=== PATIENT | male | born 1980 | race Two or more races ===

== ENCOUNTER 2021-09-14 15:14 | Emergency (ER) | payer MEDICAID, SELFPAY ==
--- NOTE | ~2021-09-14 | XR_ITS ---
EXAMINATION: XR WRIST, LEFT CLINICAL INFORMATION: Pain COMPARISON: Hand radiographs 09/14/2021 TECHNIQUE: PA, lateral, and oblique views of the left wrist. FINDINGS: No acute fracture or dislocation. Joint spaces are maintained. Moderate tissue swelling is noted along the dorsum of the wrist and forearm. XR/XR wrist LT 2V IMPRESSION: Moderate soft tissue swelling along the dorsum of the hand and forearm, without definite underlying acute osseous injury.
--- NOTE | ~2021-09-14 | XR_ITS ---
EXAMINATION: XR HAND, LEFT CLINICAL INFORMATION: Swollen COMPARISON: None TECHNIQUE: PA, lateral, and oblique views of the left hand. FINDINGS: There is no visible acute fracture, dislocation or subluxation seen. There is mild soft tissue swelling. The IP, MCP joints and inter carpal joints are normal. There is moderate dorsal hand soft tissue swelling likely cellulitis. XR/XR hand LT 2V IMPRESSION: Moderate dorsal hand cellulitis. No visible acute fracture or bony abnormality seen.
[2021-09-14 15:18] VITALS: BP 124/78; PULSE 67; RESP 18; TEMP 36.8; O2SAT 96; BMI 31.9
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
[2021-09-14 18:52] LABS: Basophils Percent Auto 0.4 % (0-2); Imm Gran Abs Auto 0.02 X10*3/uL (0.00-0.03); Imm Gran Pct Auto 0.3 % (0.0-0.4); MANUAL DIFF FLAG SCAN; PLT CLUMP 1; SCAN SMEAR FLAG 1
[2021-09-14 18:53] LABS: Eosinophils Absolute Auto 0.4 X10*3/uL (0.0-0.4); Eosinophils Percent Auto 4.8 % (0-4); Hematocrit 35.6 % (42.0-52.0); Hemoglobin 11.4 g/dl (14.0-18.0); Lymphocytes Absolute Auto 2.4 X10*3/uL (1.2-4.9); Lymphocytes Percent Auto 33.7 % (20-40); Mean Corpuscular Hemoglobin 29.8 pg (27.0-33.0); Mean Corpuscular Volume 93.2 fL (80.0-98.0); Mean Platelet Volume 10.4 fL (9.4-12.4); Monocytes Absolute Auto 0.7 X10*3/uL (0.1-1.2); Neutrophils Absolute Auto 3.7 x10*3/uL (2.0-8.3); Neutrophils Percent Auto 51.8 % (45-73); Red Blood Count 3.82 X10*6/uL (4.60-5.80); Red Cell Distribution Width 13.6 % (11.0-16.0)
[2021-09-14 19:01] LABS: Lactic Acid 1.2 mmol/L (0.5-2.0)
[2021-09-14 19:05] LABS: Anion Gap 16 (12-20); Blood Urea Nitrogen 17 mg/dL (9-16); C Reactive Protein 3.68 mg/dL (< or = 0.50); Calcium 9.1 mg/dL (8.4-10.2); Carbon Dioxide 22 mmol/L (22-29); Chloride 104 mmol/L (96-108); Creatinine Clr Calc Pharmacy 91.1; Estimated Glomerular Filt Rate > 60; Glucose Random 90 mg/dL (60-115); Potassium 4.5 mmol/L (3.3-5.1); Sodium 137 mmol/L (135-145)
[2021-09-14 19:09] LABS: Platelet Count 207 X10*3/uL (160-400); White Blood Count 7.2 X10*3/uL (4.8-10.8)
[2021-09-14 19:10] LABS: SLIDE REVIEW VERIFIED
[2021-09-14] MEDS: Piperacillin Sodium/Tazobactam 3.375 GM in 0.9 % Sodium Chloride 50 ML IV (19:22)
[2021-09-14 19:36] LABS: Erythrocyte Sedimentation Rate 28 MM/HR (0-15)
[2021-09-14 22:59] VITALS: BP 99/63; PULSE 59; RESP 16; TEMP 37.1; O2SAT 98
[2021-09-14 23:41] VITALS: BP 112/74; PULSE 61; RESP 20; O2SAT 94
== END 2021-09-15 01:17 | disposition home or self-care (01) ==
PROVIDERS: Nurse Practitioner Family; Emergency Provider Emergency Medicine
DX: L03.114 Cellulitis of left upper limb (principal); M79.642 Pain in left hand; Z79.899 Other long term (current) drug therapy
CPT/HCPCS: 36415; 73100; 73120; 80048; 83605; 85025; 85652; 86140; 87040; 96365; 96366; 96367; 99283; 99284; J2543; J3370

== ENCOUNTER 2022-06-30 18:17 | Emergency (ER) | payer MEDICAID, SELFPAY ==
[2022-06-30 18:41] VITALS: BP 170/80; PULSE 63; RESP 18; TEMP 36.1; O2SAT 95; BMI 30.4
--- NOTE | 2022-06-30 18:42 | ED_ITS ---
HPI - Dental/Oral General Chief complaint: Dental/Oral Stated complaint: toothache Time Seen by Provider: 06/30/22 18:45 Source: patient Mode of arrival: ambulatory History of Present Illness HPI Narrative: 42-year-old male with no significant past medical history presenting to the ED complaining of left lower dental pain x 1 week. Admits has been taking Tylenol and Motrin without relief. Reports pain is radiating to left cheek/neck. Denies fever, chills, drainage from area, recent dental procedures MD Complaint: tooth pain Related Data Previous Rx's Medication Instructions Recorded cephalexin 500 mg capsule 500 mg PO BID #14 caps 09/14/21 doxycycline monohydrate 100 mg 100 mg PO BID 10 days #20 caps 09/14/21 capsule amoxicillin 875 mg-potassium 1 tab PO BID 7 days #14 tabs 06/30/22 clavulanate 125 mg tablet hydrocodone 5 mg-acetaminophen 325 1 tab PO Q8H PRN pain, severe 3 06/30/22 mg tablet days #3 tabs Allergies Allergy/AdvReac Type Severity Reaction Status Date / Time SEAFOOD Allergy Unknown UNKNOWN Uncoded 06/30/22 18:46 Review of Systems Review of Systems: Constitutional: No Fever, No Chills ENT/Mouth: +dental pain, No Ear Pain, No Nasal Congestion, No Sinus Pain, No Hoarseness, No sore throat, No Rhinorrhea, No Swallowing Difficulty Cardiovascular: No Chest Pain, No SOB Respiratory: No Cough, No Sputum, No Wheezing Gastrointestinal: No Nausea, No Vomiting, No Diarrhea, No Constipation, No Abdominal pain Musculoskeletal: No joint pain, No Myalgias, No Joint Swelling Skin: No Skin Lesions, No rash Neuro: No Weakness, No Numbness, No Paresthesias Yes all other systems are reviewed and are negative Constitutional: Constitutional: Reports as per [facility] Past Medical History Attestation statement: The following information was validated with the patient. Physical Exam Vital Signs: Vital Signs: Last Vital Signs Temp 97.0 F 06/30/22 18:41 Pulse 63 06/30/22 18:41 Resp 18 06/30/22 18:41 BP 170/80 H 06/30/22 18:41 Pulse Ox 95 06/30/22 18:41 O2 Del Method Room Air 06/30/22 18:41 BMI result Body Mass Index 30.4 Const: General: cooperative, healthy appearing and no acute distress Orientation/consciousness: patient oriented x3 Limitations: no limitations HEENT: Other: Poor dentition. Left lower bicuspid with gingival irritation and tenderness. No fluctuance/induration. No active drainage. Head: Yes normal to inspection and Yes atraumatic Ears: hearing grossly normal bilaterally General nose exam: Normal external nose present Face and sinus: Yes normal facial exam and Yes face symmetric Throat: Yes posterior oropharynx normal, Yes tonsils normal, Yes uvula midline, No peritonsillar mass, No uvula laterally displaced and No uvular edema Eyes: General: appearance normal, both eyes and all related structures EOM: EOMs intact bilaterally Neck: Neck: Yes normal visual inspection and Yes no meningeal signs Resp: Effort & Inspection: normal respiratory effort and no respiratory distress Cardio: Rate: regular rate Skin: Rashes: no rashes Wounds: no wounds Neuro: General: patient oriented x3, tone normal and no meningeal signs Gait exam (Neuro): Normal gait present Extrem: General: Yes normal to inspection Medical Decision Making Medical Decision Making MDM Narrative: 42-year-old male with no significant past medical history presenting to the ED complaining of left lower dental pain x 1 week. On exam +left lower bicuspid with gingival tenderness. No fluctuance/induration/cellulitis or abscess. No appreciable facial swelling. Poor dentition. No evidence of AD OPERATIONS INTERN Plan: P.o. antibiotics, dentistry follow-up Please refer to course for remaining clinical decision making, interpretation of labs/imaging results, and discussions with consultants and/or family members. Differential Diagnosis Differential Diagnoses: The differential diagnosis associated with the presentation includes As above Admission/Observation Consideration of admission/observation: Escalation of care including admission/observation considered Lab Data [facility] Lab Attestation statement: I reviewed the patient's lab results. Radiology Impression Discussion of test interpretation with radiology: I have reviewed the radiologist's reading. External Record Review External record reviewed: Inpatient record, Office record, Outpatient record, Prior outpatient labs, Prior outpatient radiology, Primary care record and Outside ED record Discharge Plan Discharge Clinical Impression: Pain, dental Patient Disposition: Home, Self-Care Instructions: Toothache (ED) Additional Instructions: Augmentin is an antibiotic please take as prescribed. Continue taking ibuprofen and Tylenol for pain. [place] is an opiate pain medication, take only when pain is severe for the next [address], drink alcohol, or operate machinery while taking. Be aware [place] has Tylenol mixed in August exceed 4 g in 1 day You need to see a dentist If symptoms persist or worsen return to the ED Prescriptions: New amoxicillin-pot clavulanate 875-125 mg tablet 1 tab PO BID 7 Days Qty: 14 0RF hydrocodone-acetaminophen 5-325 mg tablet 1 tab PO Q8H PRN (Reason: pain, severe) 3 Days Qty: 3 0RF Rx Instructions: Partial Fill upon patient request. No Action cephalexin 500 mg capsule 500 mg PO BID Qty: 14 0RF doxycycline monohydrate 100 mg capsule 100 mg PO BID 10 Days Qty: 20 0RF Referrals: Luis A Campuzano [Dentist] - Mike Pruett DMD [Dentist] - Kurt Jimenez DMD [Dentist] - Rashmi Ashraf DMD [Dentist] - Stand Alone Forms: Work/School Release
== END 2022-06-30 18:53 | disposition home or self-care (01) ==
PROVIDERS: Emergency Provider Student in an Organized Health Care Education/Training Program
DX: K08.89 Other specified disorders of teeth and supporting structures (principal)
CPT/HCPCS: 99282; 99283

== ENCOUNTER 2022-10-20 15:57 | Emergency (ER) | payer OTHER, SELFPAY ==
--- NOTE | ~2022-10-20 | XR_ITS ---
EXAMINATION: RIGHT KNEE, RIGHT TIB-FIB CLINICAL INFORMATION: Pain and swelling. History of remote fracture of tibia. COMPARISON: None available. TECHNIQUE: 4 views right knee, 2 views right tib-fib FINDINGS: Degenerative changes are present in the knee with tricompartmental narrowing most marked medially and in the patellofemoral compartment. A tiny joint effusion is seen. No fractures, dislocations or chondrocalcinosis seen. There is a probable old healed fracture involving the distal tibial diaphysis with cortical thickening and sclerosis. No acute fracture is seen. XR/XR knee RT 4V IMPRESSION: Tricompartmental degenerative changes in the knee with a tiny joint effusion. No acute finding. This critical result was discussed with JAY JAY Ellsworth at 6:30 PM on the evening of the exam and it was ascertained that the content and urgency of the report was understood at the time of direct communication.
--- NOTE | ~2022-10-20 | XR_ITS ---
EXAMINATION: RIGHT KNEE, RIGHT TIB-FIB CLINICAL INFORMATION: Pain and swelling. History of remote fracture of tibia. COMPARISON: None available. TECHNIQUE: 4 views right knee, 2 views right tib-fib FINDINGS: Degenerative changes are present in the knee with tricompartmental narrowing most marked medially and in the patellofemoral compartment. A tiny joint effusion is seen. No fractures, dislocations or chondrocalcinosis seen. There is a probable old healed fracture involving the distal tibial diaphysis with cortical thickening and sclerosis. No acute fracture is seen. XR/XR tibia fibula RT 2V IMPRESSION: Tricompartmental degenerative changes in the knee with a tiny joint effusion. No acute finding. This critical result was discussed with JAY JAY Ellsworth at 6:30 PM on the evening of the exam and it was ascertained that the content and urgency of the report was understood at the time of direct communication.
[2022-10-20 16:29] VITALS: BP 139/87; PULSE 76; RESP 18; TEMP 36.9; O2SAT 97; BMI 30.4
--- NOTE | 2022-10-20 16:29 | ED_ITS ---
HPI - Extremity Injury (Lower) General Chief Complaint: Extremity Injury, Lower Stated Complaint: right knee inj Time Seen by Provider: 10/20/22 18:32 Source: patient Mode of arrival: ambulatory History of Present Illness HPI Narrative: 42-year-old male who has chronic knee pain presents with right knee pain after falling onto the knee over a week ago. He denies any fevers or chills and states he experiences discomfort on flexion of the knee. However, he otherwise denies any numbness or tingling. Related Data Previous Rx's Medication Instructions Recorded cephalexin 500 mg capsule 500 mg PO BID #14 caps 09/14/21 doxycycline monohydrate 100 mg 100 mg PO BID 10 days #20 caps 09/14/21 capsule amoxicillin 875 mg-potassium 1 tab PO BID 7 days #14 tabs 06/30/22 clavulanate 125 mg tablet hydrocodone 5 mg-acetaminophen 325 1 tab PO Q8H PRN pain, severe 3 06/30/22 mg tablet days #3 tabs Allergies Allergy/AdvReac Type Severity Reaction Status Date / Time SEAFOOD Allergy Unknown UNKNOWN Uncoded 06/30/22 18:46 Review of Systems Review of Systems: Pertinent positives and negatives as stated in HPI [facility] Past Medical History Source: nursing notes reviewed Social History Social History Advance Directives: No Advance Directives Information Provided: Yes Physical Exam Vital Signs: Vital Signs: Last Vital Signs Temp 98.4 F 10/20/22 16:29 Pulse 76 10/20/22 16:29 Resp 18 10/20/22 16:29 BP 139/87 10/20/22 16:29 Pulse Ox 97 10/20/22 16:29 O2 Del Method Room Air 10/20/22 16:29 BMI result Body Mass Index 30.4 VITAL SIGNS: Reviewed. GENERAL: Well developed, well nourished, in no acute distress. HEAD: Normocephalic/atraumatic EYES: PERRLA, EOMI LUNGS: Normal breath sounds. No adventitious sounds or accessory muscle use. SpO2<97> CARDIOVASCULAR: Regular rate and rhythm without noted murmurs ABDOMEN: Soft, non-tender, non-distended with bowel sounds. MUSCULOSKELETAL: No tenderness, deformities, or effusions noted on gross inspection. EXTREMITIES: No cyanosis, clubbing or edema. RIGHT KNEE: No obvious deformity, erythema, induration, full range of motion pr esent but discomfort noted, neurovascular intact distally, warm foot, palpable DP/PT with good capillary refill. SKIN: Inspection of the skin reveals no rashes NEUROLOGIC: Alert and oriented x 4. Strength and sensation to light touch were grossly intact x 4. Course Course Course Narrative: RME: 42-year-old male no significant past medical history presenting to the ED complaining of right knee pain radiating down RLE s/p moving furniture a few days ago. reports twisting injury, denies direct injury or fall +right knee with mild swelling, diffusely ttp. NV intact XRs ordered Full HPI, ROS and PE to be performed by primary ED provider. Medical Decision Making Medical Decision Making MDM Narrative: 42-year-old male with acute on chronic osteoarthritis and no evidence of cellulitis or septic arthritis and no suspicion for significant ligamentous injury such as ACL/LCL/MCL. I reviewed the x-ray which was negative for fracture dislocation and otherwise my interpretation of the knee/tibia/fibula x- rays are in agreement with radiology's impression I applied an Ganga wrap to patient's right knee and he will go home with combination analgesics as well as ice use and instructions to follow-up with his primary care provider. Differential Diagnosis Differential Diagnoses: The differential diagnosis associated with the presentation includes Please see the discussion above Admission/Observation Consideration of admission/observation: Escalation of care including admission/observation considered Please see the discussion above Radiology Impression Discussion of test interpretation with radiology: I have reviewed the radiologist's reading. Radiologist Impression: Please see the discussion above Discharge Plan Discharge Clinical Impression: Knee pain, right, Osteoarthritis Patient Disposition: Home, Self-Care Instructions: Osteoarthritis (ED), Knee Pain (ED) Additional Instructions: 1. Tylenol 1000 mg, orally, every 6 hours as needed for pain control. Do not exceed 4000 mg within 24 hours. 2. Ibuprofen 400 mg, orally with milk or food, every 6 hours as needed for pain control. You may take this in combination with the Tylenol for improved symptom relief. 3. I recommend keeping the Ganga bandage in place while ambulating for additional compression and symptom relief. 4. Consider applying ice to unexposed skin for 10-15 minutes, 3 to 4 times a day. 5. He will need to follow-up with your primary care provider to discuss a refe rral for physical therapy. Return to the ER for any worsening symptoms. Prescriptions: No Action cephalexin 500 mg capsule 500 mg PO BID Qty: 14 0RF doxycycline monohydrate 100 mg capsule 100 mg PO BID 10 Days Qty: 20 0RF amoxicillin-pot clavulanate 875-125 mg tablet 1 tab PO BID 7 Days Qty: 14 0RF hydrocodone-acetaminophen 5-325 mg tablet 1 tab PO Q8H PRN (Reason: pain, severe) 3 Days Qty: 3 0RF Rx Instructions: Partial Fill upon patient request. Stand Alone Forms: Work/School Release
== END 2022-10-20 19:08 | disposition home or self-care (01) ==
PROVIDERS: Emergency Provider Student in an Organized Health Care Education/Training Program
DX: M25.561 Pain in right knee (principal); M17.11 Unilateral primary osteoarthritis, right knee
CPT/HCPCS: 73564; 73590; 99282; 99283

== ENCOUNTER 2023-09-14 18:07 | Emergency (ER) | payer SELFPAY ==
--- NOTE | ~2023-09-14 | XR_ITS ---
EXAMINATION: XR KNEE, LEFT CLINICAL INFORMATION: Injury on Thursday, fall COMPARISON: None available. TECHNIQUE: Four views of the left knee. FINDINGS: No acute fracture or dislocation. There is a small joint effusion. There is mild medial compartment joint space narrowing. There is mild osteophyte formation. XR/XR knee LT 3V IMPRESSION: 1. Small joint effusion. 2. Mild degenerative disease of the left knee.
[2023-09-14 18:19] VITALS: BP 124/61; PULSE 83; RESP 20; TEMP 37.2; O2SAT 96; BMI 32.5
[2023-09-14 21:52] VITALS: BP 103/62; PULSE 60; RESP 16; TEMP 36.8; O2SAT 97
--- NOTE | 2023-09-14 23:51 | ED.LOWEXIN ---
HPI - Extremity Injury (Lower) General Chief Complaint: Extremity Injury, Lower Stated Complaint: fall off ladder at work Time Seen by Provider: 09/14/23 23:06 Source: patient Mode of arrival: ambulatory Limitations: no limitations History of Present Illness ED Provider: Dr. Brittney Henderson HPI Narrative: Patient comes to the emergency room complaining of left-sided knee pain. Patient states that the injury happened 5 days ago, but over last couple of days, the pain and swelling got much worse. Patient states that he was at work, patient states that he was stepping down from a ladder, his foot slipped and went in between the ladder and fell. Patient complaining of pain and swelling. Patient denies pain anywhere else. Patient denies hitting his head or losing consciousness. Since then, patient has been walking around limping Related Data Previous Rx's ?Medication ?Instructions ?Recorded cephalexin 500 mg capsule 500 mg PO BID #14 caps 09/14/21 doxycycline monohydrate 100 mg 100 mg PO BID 10 days #20 caps 09/14/21 capsule amoxicillin 875 mg-potassium 1 tab PO BID 7 days #14 tabs 06/30/22 clavulanate 125 mg tablet hydrocodone 5 mg-acetaminophen 325 1 tab PO Q8H PRN pain, severe 3 06/30/22 mg tablet days #3 tabs Allergies Allergy/AdvReac Type Severity Reaction Status Date / Time SEAFOOD Allergy Unknown UNKNOWN Uncoded 09/14/23 18:20 Review of Systems Review of Systems: Constitutional : No Weight loss, No Fever, No Chills, No Night Sweats, No Fatigue, No Malaise ENT/Mouth : No Hearing loss, No Ear Pain, No Nasal Congestion, No Sinus Pain, No Hoarseness, No sore throat, No Rhinorrhea, No Swallowing Difficulty Eyes: No Eye Pain, No Swelling, No Redness, No Foreign Body, No Discharge, No Vision Changes Cardiovascular : No Chest Pain, No SOB, No Dyspnea on Exertion, No Orthopnea, No Edema, No Palpitations Respiratory : No Cough, No Sputum, No Wheezing, No Smoke Exposure, No Dyspnea Gastrointestinal : No Nausea, No Vomiting, No Diarrhea, No Constipation, No abdominal Pain, No Hematochezia, No Melena Genitourinary : no irregular bleeding, No Dysuria, No Urinary Frequency, No Hematuria, No Urinary Incontinence, No Urgency, No Flank Pain, No Urinary Flow Changes, No Hesitancy Musculoskeletal : Complaining of left knee pain and swelling, No Myalgias, No Joint Swelling Skin : No Skin Lesions, No rash Neuro : No Weakness, No Numbness, No Paresthesias, No Loss of Consciousness, No Dizziness, No Headache Psych : No Anxiety/Panic, No Depression, No SI/HI/AH/VH, No Social Issues, Heme/Lymph: No Bruising, No Bleeding,No Lymphadenopathy Endocrine : No Polyuria, No Polydipsia, No Temperature Intolerance [facility] Social History Social History Advance Directives: No Advance Directives Information Provided: No Do you have a plan to hurt others: No Plan Physical Exam Vital Signs: Vital Signs: Last Vital Signs Temp 98.3 F 09/14/23 21:52 Pulse 60 09/14/23 21:52 Resp 16 09/14/23 21:52 BP 103/62 09/14/23 21:52 Pulse Ox 97 09/14/23 21:52 O2 Del Method Room Air 09/14/23 21:52 BMI result Body Mass Index 32.5 Const: Other: Appearance: Alert. Oriented X3. No acute distress. Eyes: Pupils equal, round and reactive to light. ENT: Pharynx normal. Neck: Normal inspection. Neck supple. No lymph nodes noted. No crepitus CVS: Normal heart rate and rhythm. Pulses normal. Normal S1 and S2 Respiratory: No respiratory distress. Breath sounds normal. No Wheezing. No rales Abdomen: Soft and nontender. No rigidity. No distention. Skin: Skin warm and dry. Normal skin color. Normal skin turgor. Extremities: No lower extremity edema. No Lacerations. No Rash. Patient unable to flex and extend the knee due to pain. Patient has [id number] swelling around the knee, more below the patella Neuro: Oriented X 3. No motor deficit. No sensory deficit. Moving all extremities. No slurred speech. CN 2 through 12 grossly intact Psych: calm, cooperative, normal affect Medical Decision Making Medical Decision Making MDM Narrative: My interpretation of x-rays: Normal alignment, no fracture, small effusion below the patella -I discussed with the patient that his x-rays are normal other than the effusion. However, it is likely that patient may have injured the meniscus or the knee ligaments for which he may need an MRI. -patient has been taking ibuprofen home, states he has enough and does not require a prescription. -patient will follow-up with orthopedics Differential Diagnosis Differential Diagnoses: The differential diagnosis associated with the presentation includes (As above) Independent Interpretation I performed an independent interpretation of an: Plain X-Ray Radiology Impression Discussion of test interpretation with radiology: I have reviewed the radiologist's reading. Radiologist Impression: No acute fracture or dislocation. There is a small joint effusion. There is mild medial compartment joint space narrowing. There is mild osteophyte formation. XR/XR knee LT 3V IMPRESSION: 1. Small joint effusion. 2. Mild degenerative disease of the left knee. Discharge Plan Discharge Clinical Impression: Contusion of knee Patient Disposition: Home, Self-Care Instructions: Contusion in Adults (ED) Additional Instructions: It is possible that you may have a meniscal injury or a ligament tear. If you do not improve within the next week, you may need an MRI. Please follow-up with your primary care physician and with work connections tomorrow. If you have any worsening or new symptoms, please return to the emergency room or call 911 Prescriptions: No Action cephalexin 500 mg capsule 500 mg PO BID Qty: 14 0RF doxycycline monohydrate 100 mg capsule 100 mg PO BID 10 Days Qty: 20 0RF amoxicillin-pot clavulanate 875-125 mg tablet 1 tab PO BID 7 Days Qty: 14 0RF hydrocodone-acetaminophen 5-325 mg tablet 1 tab PO Q8H PRN (Reason: pain, severe) 3 Days Qty: 3 0RF Rx Instructions: Partial Fill upon patient request. Referrals: Leland Salazar PA [Physician Intensive Care Unit Nurse] - 09/17/23 Print Language: Telugu
[2023-09-15 00:04] VITALS: BP 117/74; PULSE 72; RESP 16; TEMP 36.2; O2SAT 98
[2023-09-15 01:16] VITALS: BP 117/74; PULSE 72; RESP 16; TEMP 36.2; O2SAT 98
== END 2023-09-15 01:16 | disposition home or self-care (01) ==
PROVIDERS: Emergency Provider Emergency Medicine
DX: S80.02XA Contusion of left knee, initial encounter (principal); M25.562 Pain in left knee; W11.XXXA Fall on and from ladder, initial encounter; Y93.9 Activity, unspecified; Y92.9 Unspecified place or not applicable; Y99.0 Civilian activity done for income or pay; Z79.899 Other long term (current) drug therapy
CPT/HCPCS: 73562; 99283

== ENCOUNTER → 2023-10-07 11:09 | Outpatient (BNVA) | payer OTHER, SELFPAY | PROVIDERS: Visit Provider Physician Assistant ==

== ENCOUNTER 2023-10-22 12:36 | Outpatient (REF) | payer MEDICARE, OTHER, SELFPAY | END 2023-10-22 12:37 | disposition home or self-care (01) | LOC: HO.HOSX 12:36 | PROVIDERS: Visit Provider Physician Assistant | DX: Z13.89 Encounter for screening for other disorder (principal) ==

== ENCOUNTER 2024-12-18 15:02 | Emergency (ER) | payer OTHER, SELFPAY ==
--- NOTE | ~2024-12-18 | XR_ITS ---
CLINICAL HISTORY: pain, injury 4 view left knee Comparison: CR/SR - XR KNEE 3 VIEWS LEFT - 09/14/2023 06:34 PM EDT Findings: No fractures or dislocations. Tricompartmental periarticular osteophyte formation, indicating osteoarthritis. Moderate knee joint effusion. No radiopaque foreign body. IMPRESSION: Knee joint effusion. This document has been electronically signed by: Apolonia Carvajal MD on 12/18/2024 16:13:23
[2024-12-18 15:15] VITALS: BP 126/57; PULSE 80; RESP 14; TEMP 37.1; O2SAT 95; BMI 31.1
--- NOTE | 2024-12-18 15:15 | ED_ITS ---
HPI - General Adult General Chief complaint: Extremity Injury, Lower Stated complaint: l knee injury at work Time Seen by Provider: 12/18/24 16:21 Source: patient, RN notes reviewed and old records reviewed Mode of arrival: ambulatory History of Present Illness ED Provider: STEVE Delgado HPI narrative: 44-year-old male with history of opiate use disorder in remission for 2 months, currently on methadone therapy presents to the ED due to left knee pain. Patient states left knee pain started approximately 4 days ago after he dropped a tire onto the left knee while at work. Patient states pain has been constant has been taking Tylenol/ibuprofen with minimal relief. Denies fevers, chills, chest pain, SOB, difficulty breathing. MD complaint: L knee pain Related Data Previous Rx's ?Medication ?Instructions ?Recorded cephalexin 500 mg capsule 500 mg PO BID #14 caps 09/14 doxycycline monohydrate 100 mg 100 mg PO BID 10 days # 20 caps 09/14/21 capsule amoxicillin 875 mg-potassium 1 tab PO BID 7 days #14 t abs 06/30/22 clavulanate 125 mg tablet hydrocodone 5 mg-acetaminophen 325 1 tab PO Q8H PRN pa in, severe 3 06/30/22 mg tablet days #3 tabs cephalexin 500 mg capsule 500 mg PO BID 7 days #14 cap s 12/18/24 doxycycline hyclate 100 mg capsule 100 mg PO BID #14 c aps 12/18/24 Allergies Allergy/AdvReac Type Severity Reaction Status Date / Time SEAFOOD Allergy Unknown UNKNOWN Uncoded 12/18/24 15:18 Review of Systems 2 Review of Systems: CONST: Negative for fever, body aches and chills. HENT: Negative for neck pain/stiffness, headache, congestion, sore throat, swelling. EYES: Negative for discharge/pain or vision changes. RESP: Negative for cough/hemoptysis and shortness of breath. CV: Negative chest pain, difficulty breathing, palpitations. ABD: Negative pain, nausea, vomiting. : Negative increase frequency, dysuria, blood in urine or stool. MUSC: Negative for muscle aches, edema. POS L anterior knee pain SKIN: Negative rash, lesions/sores. NEURO: Negative headache, dizziness, weakness. Yes all other systems are reviewed and are negative PMFSH Past Medical History Attestation statement: The following information was validated with the patient. Source: old records reviewed and nursing notes reviewed Social History Social History Alcohol intake: current Smoked in Last 30 Days: Yes Use of substances other than those prescribed or required for medical reasons: Yes Substance Use Type: Heroin Advance Directives: No Advance Directives Information Provided: Yes Do you have a plan to hurt others: No Plan Physical Exam ED Vital Signs: Vital Signs - 24 hr 12/18/24 15:15 12/18/24 18:22 Temperature 98.8 F 98.7 F Pulse Rate 80 84 Respiratory Rate 14 17 Blood Pressure 126/57 L 128/61 Pulse Oximetry 95 97 Oxygen Delivery Method Room Air Room Air BMI result Body Mass Index 31.1 GENERAL APPEARANCE: ?AxOx4, nontoxic appearing, no acute distress. HEENT: ?NC, AT. MMM. EOMI, clear conjunctiva, oropharynx clear. NECK: ?Supple without lymphadenopathy.? No stiffness or restricted ROM. HEART:? Normal rate and regular rhythm, normal S1/S2, no m/r/g LUNGS:? CTAB, moving air well. No crackles or wheezes are heard. ABDOMEN: ?Soft, nontender, nondistended BACK: No CVAT, no obvious deformity. EXTREMITIES: ?Without cyanosis, clubbing or edema. Left knee with mild edema, without warmth or erythema, 2+ popliteal pulses, no calf tenderness, Homans sign negative, full ROM however does have pain with flexion, several fresh scars and areas of past injection use. NEUROLOGICAL: ?Grossly nonfocal. Alert and oriented, moving all 4 extremities. Observed to ambulate with normal gait. Skin: ?Warm and dry without any rash. Course Course Course Narrative: Rapid medical examination performed in triage by Yodit Gruber PA-C. Patient is a 44 year old assigned male at presenting to the emergency department with left knee pain after injuring it 2 days ago at work. Detailed physical exam and review of systems are deferred to the instrument technician helper. Imaging ordered. Patient placed back in the waiting room pending room availability and results. Medications Administered Discontinued Medications Generic Name Dose Route Start Last Admin Trade Name Freq PRN Reason Stop Dose Admin Acetaminophen 975 mg 12/18/24 17:10 12/18/24 17:46 Acetaminophen 325 Mg Tablet PO 12/18/24 17:11 975 mg ONCE ONE Administration Ketorolac Tromethamine 30 mg 12/18/24 17:10 12/18/24 17:45 Ketorolac Tromethamine 30 Mg/Ml Vial IM 12/18/24 17:11 30 mg ONCE ONE Administration Medical Decision Making Medical Decision Making MDM Narrative: 44-year-old male with history of opiate use disorder in remission for 2 months, currently on methadone therapy presents to the ED due to left knee pain. Patient states left knee pain started approximately 4 days ago after he dropped a tire onto the left knee while at work. Patient states pain has been constant has been taking Tylenol/ibuprofen with minimal relief. VS on initial observation-BP 126/57, pulse rate of 80, respiratory rate of 14, afebrile with oral temp of 98.8?, O2 saturation 95% on room air. On physical exam Left knee with mild edema, no warmth or erythema, 2+ popliteal pulses, no calf tenderness, Homans sign negative, full ROM however does have pain with flexion, several fresh scars and areas of past injection use. Labs without leukocytosis/leukopenia, normocytic anemia with an HGB of 11.0, HCT of 34.3, CPK mildly elevated at 324, no electrolyte abnormalities. XR L knee reveals tricompartmental periarticular osteophyte formation, with moderate knee joint effusion. Patient with left knee pain after dropping a tire onto the left knee at work 4 days ago with mild edema and tenderness of diffuse patella, no signs of vascular compromise, popliteal pulses 2+, full ROM intact, SILT, there are several fresh scars in areas of pass injection use. Patient 2 months remission of opiate use disorder, currently on methadone therapy. Patient is afebrile, without leukocytosis less likely septic arthritis. Pain is most likely musculoskeletal pain after dropping tire onto the left knee. CPK mildly elevated at 324, I suggested IV fluids, however patient is anxious to go home, and would like to do oral rehydration at home instead. Patient will be prescribed 7 day course of Keflex and doxycycline to cover for any potential bacterial infection due to history of IVDU, and fresh scars surrounding the area. Patient does not have primary care provider at this time, I counseled patient on strict return precautions. Patient is in agreement with the plan. Differential Diagnosis Differential Diagnoses: The differential diagnosis associated with the presentation includes Knee fracture Knee dislocation Osteomyelitis Septic arthritis Knee contusion Admission/Observation Consideration of admission/observation: Escalation of care including admission/observation considered Lab Data MDM Lab Attestation statement: I reviewed the patient's lab results. 12/18/24 18:46 12/18/24 18:10 Labs: Lab Results 12/18/24 12/18/24 Range/Units 18:10 18:46 WBC 9.5 (4.8-10.8) X10*3/uL RBC 3.93 L (4.60-5.80) X10*6/uL Hgb 11.0 L (14.0-18.0) g/dl Hct 34.3 L (42.0-52.0) % MCV 87.3 (80.0-98.0) fL MCH 28.0 (27.0-33.0) pg MCHC 32.1 (31.0-36.0) g/dl RDW 15.5 (11.0-16.0) % Plt Count 255 (160-400) X10*3/uL MPV 9.1 L (9.4-12.4) fL Immature Gran % (Auto) 0.3 (0.0-0.4) % Neut % (Auto) 68.1 (45-73) % Lymph % (Auto) 22.4 (20-40) % Barnes % (Auto) 8.0 (2-11) % Eos % (Auto) 1.0 (0-4) % Baso % (Auto) 0.2 (0-2) % Lymph # (Auto) 2.1 (1.2-4.9) X10*3/uL Barnes # (Auto) 0.8 (0.1-1.2) X10*3/uL Eos # (Auto) 0.1 (0.0-0.4) X10*3/uL Baso # (Auto) 0.0 (0.0-0.2) X10*3/uL Abs Immat Gran (auto) 0.03 (0.00-0.03) X10*3/uL Absolute Neuts (auto) 6.5 (2.0-8.3) x10*3/uL Absolute Nucleated RBC 0.000 (0.0-0.012) X10*3/uL Nucleated RBC % (auto) 0.0 (0.0-0.2) /100WBC Sodium 135 (135-145) mmol/L Potassium 5.0 (3.3-5.1) mmol/L Chloride 107 (96-108) mmol/L Carbon Dioxide 19 L (22-29) mmol/L Anion Gap 14 (12-20) BUN 11 (9-16) mg/dL Creatinine 0.80 (0.5-1.4) mg/dL Estim Creat Clear Calc 127.6 Estimated GFR > 60 Random Glucose 110 (60-115) mg/dL Calcium 8.7 (8.4-10.2) mg/dL Magnesium 2.5 (1.6-2.6) mg/dL Total Bilirubin 0.5 (0.0-1.0) mg/dL AST 30 (5-37) U/L ALT 9 (0-40) U/L Alkaline Phosphatase 115 (39-117) U/L Total Creatine Kinase 324 H (38-174) U/L Total Protein 6.9 (6.5-8.0) g/dL Albumin 3.1 L (3.5-5.0) g/dL Independent Interpretation I performed an independent interpretation of an: Plain X-Ray Interpretation: I independently interpreted the x-ray of the left knee which reveals osteophyte formation, knee joint effusion, no fracture or dislocation, I agree with the radiologist's interpretation. Radiology Impression Discussion of test interpretation with radiology: I have reviewed the radiologist's reading. Radiologist Impression: XR L knee Findings: No fractures or dislocations. Tricompartmental periarticular osteophyte formation, indicating osteoarthritis. Moderate knee joint effusion. No radiopaque foreign body. IMPRESSION: Knee joint effusion. This document has been electronically signed by: Apolonia Carvajal MD on 12/18/2024 16:13:23 Dictated By: Apolonia Carvajal MD Signed By: <Electronically signed by Apolonia Carvajal MD in OV> 12/18/24 1614 External Record Review External record reviewed: Inpatient record, Office record and Outpatient record Chronic Conditions Patient?s care impacted by: Other (Opiate use disorder in remission for 2 months) Discharge Plan Discharge Clinical Impression: Contusion of left knee Patient Disposition: Home, Self-Care Additional Instructions: You were evaluated in the ED due to left knee pain after tire fell onto the knee 4 days ago. Your blood work was reassuring as there was no significant increase in your white blood cell count suggestive of infection, no electrolyte abnormalities, your CPK which is an enzyme given off by muscles when they are under stress or damage was mildly elevated at 324. You had a mild anemia with a hemoglobin of 11.0, and hematocrit of 34.3, this is nonemergent, you can follow up with your primary care doctor on these findings. You were offered IV fluids, but would like to go home for oral rehydration instead. You will be prescribed a 7 day course of Keflex and doxycycline for bacterial coverage. Additionally, you should ice and elevate the area, and take 500 mg of Tylenol, and 400 mg of ibuprofen every 6 hours for pain management. I have provided referrals for primary care doctors for you, you have to call their office as they will not call you. Please return to the emergency department if you experience fevers over 100.4?, worsening pain of the left knee, decreased sensation of the left knee, inability to bear weight or walk onto the left knee, redness, warmth of the left knee, or any new/worsening/concerning symptoms. Prescriptions: New cephalexin 500 mg capsule 500 mg PO BID 7 Days Qty: 14 0RF doxycycline hyclate 100 mg capsule 100 mg PO BID Qty: 14 0RF No Action cephalexin 500 mg capsule 500 mg PO BID Qty: 14 0RF doxycycline monohydrate 100 mg capsule 100 mg PO BID 10 Days Qty: 20 0RF amoxicillin-pot clavulanate 875-125 mg tablet 1 tab PO BID 7 Days Qty: 14 0RF hydrocodone-acetaminophen 5-325 mg tablet 1 tab PO Q8H PRN (Reason: pain, severe) 3 Days Qty: 3 0RF Rx Instructions: Partial Fill upon patient request. Referrals: [facility] [place] [Provider Group, Internal Medicine] Brit Cox MD [Physician, Medical] Nini Enciso MD [Physician, Internal Medicine] [facility] Family Medicine [Provider Group, Family Practice] Print Language: Icelandic
[2024-12-18 18:22] VITALS: BP 128/61; PULSE 84; RESP 17; TEMP 37.1; O2SAT 97
[2024-12-18 18:32] LABS: Alanine Aminotransferase 9 U/L (0-40); Albumin Level 3.1 g/dL (3.5-5.0); Alkaline Phosphatase 115 U/L (39-117); Anion Gap 14 (12-20); Aspartate Amino Transferase 30 U/L (5-37); Blood Urea Nitrogen 11 mg/dL (9-16); Calcium 8.7 mg/dL (8.4-10.2); Carbon Dioxide 19 mmol/L (22-29); Chloride 107 mmol/L (96-108); Creatinine Clr Calc Pharmacy 127.6; Estimated Glomerular Filt Rate > 60; Magnesium 2.5 mg/dL (1.6-2.6); Potassium 5.0 mmol/L (3.3-5.1); Sodium 135 mmol/L (135-145); Total Protein 6.9 g/dL (6.5-8.0)
--- NOTE | 2024-12-18 18:50 | PC.NURSE ---
Pt has been resistant to undressing. States he's been clean from opiates for months. Staff are suspicious that pt's knee inj is from injections. Pt has not shown this RN his knee.
[2024-12-18 18:53] LABS: Hematocrit 34.3 % (42.0-52.0); Hemoglobin 11.0 g/dl (14.0-18.0); Imm Gran Abs Auto 0.03 X10*3/uL (0.00-0.03); Imm Gran Pct Auto 0.3 % (0.0-0.4); Lymphocytes Absolute Auto 2.1 X10*3/uL (1.2-4.9); Mean Corpuscular HGB Conc 32.1 g/dl (31.0-36.0); Mean Corpuscular Hemoglobin 28.0 pg (27.0-33.0); Mean Corpuscular Volume 87.3 fL (80.0-98.0); NRBC Abs Auto 0.000 X10*3/uL (0.0-0.012); NRBC Pct Auto 0.0 /100WBC (0.0-0.2); Platelet Count 255 X10*3/uL (160-400); Red Blood Count 3.93 X10*6/uL (4.60-5.80); White Blood Count 9.5 X10*3/uL (4.8-10.8)
[2024-12-18 19:22] LABS: MANUAL DIFF FLAG NO
[2024-12-18 19:41] VITALS: BP 114/54; PULSE 61; RESP 16; TEMP 36.6; O2SAT 97
== END 2024-12-18 19:42 | disposition home or self-care (01) ==
PROVIDERS: Emergency Provider Student in an Organized Health Care Education/Training Program
DX: S80.02XA Contusion of left knee, initial encounter (principal); W20.8XXA Other cause of strike by thrown, projected or falling object, initial encounter; Y93.89 Activity, other specified; Y92.89 Other specified places as the place of occurrence of the external cause; Y99.0 Civilian activity done for income or pay; M25.562 Pain in left knee
CPT/HCPCS: 36415; 73564; 80053; 82550; 83735; 85025; 96372; 99284; J1885

== ENCOUNTER → 2024-12-18 15:16 | Outpatient (BNV) | payer OTHER, SELFPAY | PROVIDERS: Emergency Provider Student in an Organized Health Care Education/Training Program; Visit Provider Radiology Diagnostic Radiology | DX: M25.462 Effusion, left knee (principal) | CPT/HCPCS: 73564 ==